=== PATIENT | male | born 1985 | race Caucasian/White ===

== ENCOUNTER 2020-03-05 18:46 | Emergency (ER) | payer BC, SELFPAY ==
[~2020-03-05] VITALS: Ht 177.8 cm; Wt 86.2 kg
[2020-03-05 19:23] VITALS: Ht 177.8 cm; Wt 86.2 kg
[2020-03-05 20:02] VITALS: BP 118/60
== END 2020-03-05 20:02 | disposition home or self-care (01) ==
LOC: ED 18:46
DX: J06.9 Acute upper respiratory infection, unspecified (principal); R19.7 Diarrhea, unspecified; Z20.828 Contact with and (suspected) exposure to other viral communicable diseases
CPT/HCPCS: U0003-CS